=== PATIENT | male | born 1990 | race Caucasian/White ===

== ENCOUNTER 2018-05-27 19:47 | Emergency (ER) | payer OTHER ==
[~2018-05-27] VITALS: Ht 170.2 cm; Wt 97.5 kg
[~2018-05-27 19:47] MED LIST: FLEXERIL PO; NAPROSYN500 MG PO; NORCO 5-325 TA1 EACH PO
[2018-05-27] MEDS ORDERED: FLEXERIL PO (20:50)
[2018-05-27] MEDS ORDERED: NORCO 7.5-3251 EACH PO (20:50)
[2018-05-27] MEDS ORDERED: LISINOPRIL10 MG PO (21:02)
[2018-05-27 22:07] VITALS: BP 172/107
== END 2018-05-27 22:08 | disposition home or self-care (01) ==
LOC: M.ERS 19:47
DX: S42.022A Displaced fracture of shaft of left clavicle, initial encounter for closed fracture (principal); W17.89XA Other fall from one level to another, initial encounter; Y93.55 Activity, bike riding; Y92.89 Other specified places as the place of occurrence of the external cause; Y99.8 Other external cause status